=== PATIENT | female | born 1970 | race Hispanic/Latino ===

== ENCOUNTER → 2021-07-15 | Outpatient (REF) ==
[~2021-07-15] MED LIST: FLEXERIL PO; FLEXERIL10 MG PO; GLIPIZIDE10 MG PO; METFORMIN850 MG PO; NAPROSYN500 MG PO; ULTRAM50 M1 PO
== END | disposition home or self-care (01) | DRG 642 ==
LOC: LAB 07:45
PROVIDERS: ATTEND Nurse Practitioner Family
DX: E78.00 Pure hypercholesterolemia, unspecified (principal); I10 Essential (primary) hypertension; E11.9 Type 2 diabetes mellitus without complications; Z79.4 Long term (current) use of insulin